=== PATIENT | female | born 1955 | race Caucasian/White ===

== ENCOUNTER 2023-10-16 00:43 | Outpatient (CLI) | payer MEDICARE | END 2023-10-16 00:44 | disposition critical access hospital (66) | LOC: EMS 00:43 | DX: R11.2 Nausea with vomiting, unspecified (principal); R53.1 Weakness; Z93.2 Ileostomy status | CPT/HCPCS: A0425; A0429 ==

== ENCOUNTER 2023-10-16 01:24 | Observation (INO) | payer MEDICAID, MEDICARE ==
[2023-10-16] MEDS ORDERED: ONDANSETRON 4 MG/2 ML VIAL IVP STA (01:28)
[2023-10-16] MEDS ORDERED: SODIUM CHLORIDE 0.9% 1,000 ML IV STA (01:28)
[2023-10-16] MEDS ORDERED: FAMOTIDINE 20 MG/2 ML VIAL IVP STA (01:31)
--- NOTE | 2023-10-16 01:31 | ED Physician Documentation ---
History of Present Illness - Stated complaint Stated Complaint: N/V, MALAISE - History obtained from History obtained from: Patient - Additonal information Additional information: 68yF with PSH colostomy p/w nbnb n/v since 9pm tonight. also with epigastric discomfort. patient states she was having trouble with ostomy on friday but has had good output the past couple days. unable to give further history due to retching. PD PAST MEDICAL HISTORY - Allergies Allergies/Adverse Reactions: Allergies Allergy/AdvReac Type Severity Reaction Status Date / Time No Known Drug Allergies Allergy Verified 10/16/23 01:28 PD ED PE NORMAL - Vitals Vital signs reviewed: Yes - General General: Alert and oriented X 3, No acute distress, Other (retching, actively vomiting) - HEENT HEENT: Atraumatic, PERRL, EOMI - Neck Neck: Supple, no meningeal sign - Cardiac Cardiac: RRR - Respiratory Respiratory: No respiratory distress, Clear bilaterally - Abdomen Abdomen: Non tender, Non distended - Derm Derm: Normal color, Warm and dry - Extremities Extremities: No deformity Results - Vitals Vitals: Vital Signs - 24 hr 10/16/23 10/16/23 10/16/23 01:28 01:34 05:00 Temperature 35.4 C L Heart Rate 78 76 78 Respiratory 20 17 17 Rate Blood Pressure 165/80 H 154/97 H 161/80 H O2 Saturation 100 97 98 Oxygen O2 Source Room air - Labs Labs: Laboratory Tests 10/16/23 10/16/23 10/16/23 01:44 01:44 03:40 WBC 13.4 H RBC 5.31 Hgb 16.0 Hct 49.1 H MCV 92.5 MCH 30.1 MCHC 32.6 RDW 11.6 L Plt Count 241 MPV 10.0 Neut # (Auto) 11.7 H Lymph # (Auto) 1.2 L [place] # (Auto) 0.4 Eos # (Auto) 0.0 Baso # (Auto) 0.1 Absolute Nucleated RBC 0.00 Nucleated RBC % 0.0 Sodium 136 Potassium 4.2 Chloride 102 Carbon Dioxide 16 L Anion Gap 18.0 H BUN 19 Creatinine 0.7 Estimated GFR (MDRD) 83 L Glucose 174 H Lactic Acid 3.7 H* Calcium 10.7 H Total Bilirubin 1.4 H AST 19 ALT 13 Alkaline Phosphatase 99 Total Protein 8.3 Albumin 4.8 Globulin 3.5 Albumin/Globulin Ratio 1.4 Lipase 32 PD Medical Decision Making - ED course ED course: 68yF with psh colostomy, otherwise healthy p/w nbnb n/v this evening. ordered IV fluids and zofran/IV pepcid with improvement. cbc, abdominal panel, ct a/p ordered. Patient has leukocytosis, elevated lactic acid on labwork and CT a/p shows enteritis. she has had persistent n/v all night despite multiple meds. plan to admit med/surg for persisent nausea in setting of bowel enteritis. blood cultures sent, antibiotics ordered. d/w Dr. Ramachandran for admission. Departure - Departure Disposition: 66 [facility] DC/Xfer Clinical Impression: Enteritis, Nausea and vomiting Condition: Stable Forms: PCP List
[2023-10-16 01:49] LABS: BASOPHILS # (AUTO) 0.1 10^3/uL (0.0-0.1); BASOPHILS % (AUTO) 0.4 %; EOSINOPHILS % (AUTO) 0.1 %; HCT - HEMATOCRIT 49.1 % (37.0-47.0); LYMPHOCYTES # (AUTO) 1.2 10^3/uL (1.5-3.5); LYMPHOCYTES % (AUTO) 9.2 %; MEAN CORPUSCULAR HEMOGLOBIN 30.1 pg (27.0-31.0); MEAN CORPUSCULAR HGB CONC 32.6 g/dL (32.0-36.0); MEAN CORPUSCULAR VOLUME 92.5 fL (81.0-99.0); MONOCYTES # (AUTO) 0.4 10^3/uL (0.0-1.0); MONOCYTES % (AUTO) 2.8 %; NEUTROPHILS # (AUTO) 11.7 10^3/uL (1.5-6.6); NEUTROPHILS % (AUTO) 87.1 %; PLT - PLATELET COUNT 241 10^3/uL (130-450); RED BLOOD COUNT 5.31 10^6/uL (4.20-5.40); RED CELL DISTRIBUTION WIDTH 11.6 % (12.0-15.0); WHITE BLOOD COUNT 13.4 x10^3/uL (4.8-10.8)
[2023-10-16 02:02] LABS: ALBUMIN 4.8 g/dL (3.2-5.5)
[2023-10-16 02:14] LABS: ALBUMIN/GLOBULIN RATIO 1.4 (1.0-2.2); BILIRUBIN,TOTAL 1.4 mg/dL (0.2-1.0); CALCIUM 10.7 mg/dL (8.5-10.3); POTASSIUM 4.2 mmol/L (3.5-4.5); TOTAL PROTEIN 8.3 g/dL (6.4-8.9)
[2023-10-16 02:31] LABS: CREATININE 0.7 mg/dL (0.6-1.3)
[2023-10-16] MEDS ORDERED: DROPERIDOL 5 MG/2 ML VIAL IVP STA (02:31)
[2023-10-16] MEDS ORDERED: iohexoL-300 100 ML VIAL IVP ONE (03:22)
[2023-10-16] MEDS ORDERED: METOCLOPRAMIDE 10 MG/2 ML VIAL IVP STA (05:47)
[2023-10-16] MEDS ORDERED: PIPERACILLIN/TAZOBACTAM 3.375 GM in SODIUM CHLORIDE 0.9% MINIBAG 100 ML IV STA (06:08)
[2023-10-16] MEDS ORDERED: SODIUM CHLORIDE FLUSH 0.9% 10 ML SYRINGE IVP PRN (06:15)
[2023-10-16] MEDS ORDERED: ONDANSETRON 4 MG/2 ML VIAL IVP PRN (06:35)
[2023-10-16] MEDS ORDERED: PROCHLORPERAZINE 10 MG/2 ML VIAL IVP PRN (06:40)
[2023-10-16 06:54] LABS: BILIRUBIN,URINE NEGATIVE (NEGATIVE); GLUCOSE, URINE (UA) NEGATIVE (NEGATIVE); KETONES,URINE (UA) TRACE mg/dL (NEGATIVE); LEUKOCYTE ESTERASE, URINE NEGATIVE (NEGATIVE); NITRITE,URINE NEGATIVE (NEGATIVE); OCCULT BLOOD,URINE NEGATIVE (NEGATIVE); PROTEIN,URINE NEGATIVE (NEGATIVE); UROBILINOGEN,URINE 0.2 (NORMAL) E.U./dL (NORMAL)
[2023-10-16 06:59] LABS: CLARITY,URINE CLEAR (CLEAR)
[2023-10-16] MEDS ORDERED: LACTATED RINGERS 1,000 ML IV SCH (07:00)
--- NOTE | 2023-10-16 07:12 | HISTORY & PHYSICAL EXAMINATION ---
Chief Complaint - Chief Complaint Chief Complaint: intractable nausea and vomiting History of Present Illness - History of Present Illness HPI Comment/Other: This is a 68 yo female with remote history of rectal ca,s/p surgery with colostomy bag in place about 12 years ago presented to the ER today with chief complaint of intractable nausea and vomiting.She felt she ate heavy meals and was concern that she might have had a bowel blockage.She had some chills but denied any fever,no chest pain no dizziness or light headedness. Persistent of symptoms prompted her to seek medical attention.She could not hold anything.Even while i was talking to her via zoom she continue to experience vomiting. In the ED imaging did not show obstruction rather it did reveal enteritis.She received IV fluid boluses and anti emetic zofran,reglan dronabinol and the Ed attending called us to evaluate and admit for further management and diagnostic workup. I evaluated the pt via zoom technology with the nurse at bedside. PMhx Rectal ca no other medical problems and chronically not on any medications Allergies None Social no smoking no alcohol,no illicit drugs Family No known family hx of HTN,DM,cancer total of ten systems reviewed negative other than those mentioned above Physical Exam General appearance uncomfortable with persistent interruption vomiting. HEENT NC/AT,anicteric sclera. CVS regular rate and rhythm no murmurs LUNGS clear, no wheezing no crackles,no use of accessory muscles GI soft colostomy,diminished,no masses palpated. EXT no edema, no ulcers,orcyanosis NEuro AAOX4 Labs reviewed Assessment. This is a 68yo female with above mentioned medical problems presenting with intractable nausea and non billous non bloody vomiting. Intractable Nausea/vomiting Hx of Rectal ca s/p surgery colostomy Dehydration Plan Pt will be admitted into observation under hospitalist team IV fluids hydration LR 125ml/hr Zofran 4mg iv q6hs as needed for nausea and vomiting Alternate with compazine 10mg iv q6hrs prn morphine 2mg as needed for pain 4-6 pepcid 10mg iv bid Electrolyte replacement protocol liquid diet as tolerated and advance DVT PX Lovenox 4omg Subq daily Plan DW pt and nurse at bedside answered all questions appropriately. Day team will assume care of pt History - Past Medical History MRSA Hx?: No Meds/Allgy - Allergies Allergies/Adverse Reactions: Allergies Allergy/AdvReac Type Severity Reaction Status Date / Time No Known Drug Allergies Allergy Verified 10/16/23 01:28 Exam - Vital Signs Vital Signs: Vital Signs x48h Temp Pulse Resp BP Pulse Ox 10/16/23 05:00 78 17 161/80 H 98 10/16/23 01:34 76 17 154/97 H 97 10/16/23 01:28 35.4 C L 78 20 165/80 H 100 Conclusion/Plan - Lab Results Fish Bones: 10/16/23 01:44 10/16/23 01:44
[2023-10-16] MEDS ORDERED: ENOXAPARIN 40 MG/0.4 ML SYRINGE SUBQ STA (07:19)
[2023-10-16] MEDS ORDERED: MORPHINE 2 MG/ML CARPUJECT IVP PRN (07:25)
[2023-10-16] MEDS ORDERED: FAMOTIDINE 20 MG/2 ML VIAL IVP SCH (08:00)
[2023-10-16] MEDS: metroNIDAZOLE 500 MG/100 ML 500 MG/100 ML BAG IV SCH ×3 (08:43→23:07)
[2023-10-16] MEDS: LACTATED RINGERS 1,000 ML IV SCH ×2 (08:43→18:35)
--- NOTE | 2023-10-16 09:10 | CT Report ---
PROCEDURE: ABDOMEN/PELVIS W INDICATIONS: Abdominal pain, acute, nonlocalized CONTRAST: 100mL Omni 300 TECHNIQUE: After the administration of intravenous contrast, 5 mm thick sections acquired from the diaphragms to the symphysis. 5 mm thick coronal and sagittal reformats were acquired. For radiation dose reducti on, the following was used: automated exposure control, adjustment of mA and/or kV according to pili ent size. COMPARISON: None FINDINGS: Image quality: Excellent. Lung bases and heart: Minimal dependent atelectasis.. Liver: Surgical clips along the left margin of the liver likely reflect partial left hepatectomy. Rig ht hepatic 10 mm hypodensity (2/26). Additional 9 mm fluid attenuating lesion at the hepatic dome (2/ 14), probable cyst. Gallbladder and biliary tree: Spleen: No splenomegaly. Pancreas: No pancreatic ductal dilation. Adrenals: No adrenal nodule. Kidneys and ureters: No hydronephrosis. No renal cystic lesion which requires follow up. No solid mas s. Bowel and peritoneum: Ostomy in the right lower and left lower quadrant. There is increased stool wit h the bowel terminating in the right lower quadrant ostomy which may reflect bowel stasis. Fluid-fill ed loops of nondistended small bowel with mild bowel wall thickening. No definite transition point to suggest a site of mechanical bowel obstruction. The appendix is not visualized. No pathologic free f luid. No pneumoperitoneum. Lymph nodes: No central or retroperitoneal adenopathy. Vessels: No infrarenal aortic aneurysm. PELVIS Reproductive organs: Unremarkable. Bladder: No abnormal wall thickening, accounting for underdistension. Pelvic lymph nodes: No pelvic adenopathy by size criteria. Bones: No acute or suspicious osseous abnormality. Sclerotic lesion in the left iliac bone, probable benign bone island. Other: No significant ventral or inguinal hernia. IMPRESSION: Status post bilateral lower quadrant ostomies. Increased stool burden may reflect bowel stasis. Fluid -filled loops of nondistended small bowel with mild bowel wall thickening may reflect enteritis. Status post left hepatectomy. 10 mm right hepatic lobe hypodensity is indeterminant. Recommend compar felisa to priors if available. MRI abdomen or multiphase liver protocol CT can be performed for further evaluation. These findings are concordant with [facility] preliminary results. Reviewed by: Abby Miller MD on 10/16/2023 9:09 AM PST Approved by: Abby Miller MD on 10/16/2023 9:09 AM PST Station ID: [id number]
[2023-10-16] MEDS: SODIUM CHLORIDE FLUSH 0.9% 10 ML SYRINGE IVP SCH ×2 (11:06→18:35)
[2023-10-16] MEDS: FAMOTIDINE 20 MG/2 ML VIAL IVP SCH (20:19)
[2023-10-17] MEDS: SODIUM CHLORIDE FLUSH 0.9% 10 ML SYRINGE IVP SCH ×2 (01:45→08:45)
[2023-10-17] MEDS: LACTATED RINGERS 1,000 ML IV SCH (04:40)
[2023-10-17 06:39] LABS: BASOPHILS # (AUTO) 0.1 10^3/uL (0.0-0.1); BASOPHILS % (AUTO) 0.6 %; EOSINOPHILS # (AUTO) 0.1 10^3/uL (0.0-0.7); EOSINOPHILS % (AUTO) 0.7 %; HCT - HEMATOCRIT 35.2 % (37.0-47.0); HGB - HEMOGLOBIN 11.4 g/dL (12.0-16.0); LYMPHOCYTES # (AUTO) 2.5 10^3/uL (1.5-3.5); LYMPHOCYTES % (AUTO) 23.4 %; MEAN CORPUSCULAR HEMOGLOBIN 29.2 pg (27.0-31.0); MEAN CORPUSCULAR HGB CONC 32.4 g/dL (32.0-36.0); MEAN PLATELET VOLUME 9.7 fL (7.9-10.8); MONOCYTES # (AUTO) 1.1 10^3/uL (0.0-1.0); MONOCYTES % (AUTO) 10.3 %; NEUTROPHILS # (AUTO) 7.1 10^3/uL (1.5-6.6); NEUTROPHILS % (AUTO) 64.8 %; PLT - PLATELET COUNT 224 10^3/uL (130-450); RED BLOOD COUNT 3.91 10^6/uL (4.20-5.40); RED CELL DISTRIBUTION WIDTH 11.5 % (12.0-15.0); WHITE BLOOD COUNT 10.9 x10^3/uL (4.8-10.8)
[2023-10-17 06:48] LABS: CALCIUM 8.9 mg/dL (8.5-10.3); CREATININE 0.5 mg/dL (0.6-1.3); MAGNESIUM 1.8 mg/dL (1.7-2.3); PHOSPHORUS 2.6 mg/dL (2.5-5.0); POTASSIUM 3.3 mmol/L (3.5-4.5)
[2023-10-17] MEDS: metroNIDAZOLE 500 MG/100 ML 500 MG/100 ML BAG IV SCH ×2 (07:17→15:05)
[2023-10-17] MEDS: FAMOTIDINE 20 MG/2 ML VIAL IVP SCH (08:45)
[2023-10-17] MEDS: POTASSIUM CHLOR 10 MEQ/100 ML 10 MEQ/100 ML BAG IV SCH ×2 (11:10→12:33)
--- NOTE | 2023-10-17 11:18 | PHARMACY PROGRESS NOTE ---
- Best Possible Medication History Admit Date and Time: 10/16/23 0633 Processed by: Pharmacy Medication History completed: Yes Patient Interview: Completed As the person ultimately responsible for medication therapy, providers are able to order a medication from an existing home medication list in [facility] via the "Reconcile Routine" prior to Confirmation of that medication by retail support specialist. Such practice is discouraged except when the physician, in their clinical jasmina gment, deems that a medical need exists for a medication without regard to previous use.
--- NOTE | 2023-10-17 14:00 | Discharge Plan ---
Discharge Plan Problem Reviewed?: Yes Disposition: 01 Home, Self Care Condition: Stable Diet: Regular (Eat an easily digestible diet that is low in fiber, and not fatty or spicy, for the next 4 to 5 days, and stay well hydrated.) Activity Restrictions: Activity as Tolerated Shower Restrictions: No Driving Restrictions: No Health Concerns: You were in the hospital to give you IV fluids, bowel rest with an easily digestible diet and a short course of antibiotics. You are enteritis symptoms have resolved and you are being discharged home today. Please resume all your usual pre-hospital medications and management. Plan of Treatment: As above. You should see your Primary Care Provider for a hospital follow-up visit. Care Goals: Improvement in symptoms and stabilization are the goals. Assessment: The patient understands and is agreeable with the plan. Additional Instructions or Follow Up instructions: If you have new or worsening symptoms, call your Primary Care Provider or Reference Services Head, for advice, or come to the ER. No Smoking: If you smoke, Please STOP! Call for help.
--- NOTE | 2023-10-17 14:02 | DISCHARGE SUMMARY ---
Discharge Summary Admit Date: 10/16/23 Discharge Date: 10/17/23 Discharging Provider: Dr Ani Kuhn Primary Care Provider: Dr Martha Sanchez Condition at Discharge: Stable Discharge Disposition: 01 Home, Self Care - HPI History of Present Illness: From Telemedicine H&P: This is a 68 yo female with remote history of rectal ca,s/p surgery with colostomy bag in place about 12 years ago presented to the ER today with chief complaint of intractable nausea and vomiting.She felt she ate heavy meals and was concern that she might have had a bowel blockage.She had some chills but denied any fever,no chest pain no dizziness or light headedness. Persistent of symptoms prompted her to seek medical attention.She could not hold anything.Even while i was talking to her via zoom she continue to experience vomiting. In the ED imaging did not show obstruction rather it did reveal enteritis. She received IV fluid boluses and anti emetic zofran, reglan dronabinol and the Ed attending called us to evaluate and admit for further management and diagnostic workup. I evaluated the pt via zoom technology with the nurse at bedside. - HOSPITAL COURSE Hospital Course: Intractable Nausea/vomiting She was put on clear ;iquids and got iv fluids and iv antiemetics. Her sx improved quickly. She was tried on more solid food, tolerate this and was able to be discharged the following day. Hx of Rectal ca As per Hx s/p surgery colostomy As per Hx Dehydration She was no longer clinically dehydrated after receiving iv fluids for a day. - ALLERGIES Allergies/Adverse Reactions: Allergies Allergy/AdvReac Type Severity Reaction Status Date / Time No Known Drug Allergies Allergy Verified 10/16/23 01:28 - MEDICATIONS Home Medications: Ambulatory Orders Medication Instructions Recorded Confirmed Calcium Carbonate [Calcium] 600 mg PO DAILY 10/17/23 10/17/23 Cholecalciferol (Vitamin D3) 125 mcg PO DAILY 10/17/23 10/17/23 [Vitamin D3] Cyanocobalamin (Vitamin B-12) 1,000 mcg PO DAILY 10/17/23 10/17/23 [Vitamin B-12] - PHYSICAL EXAM AT DISCHARGE General Appearance: positive: No acute distress, Alert Eyes Bilateral: positive: Normal inspection, EOMI ENT: positive: ENT inspection nml, No signs of dehydration Neck: positive: Nml inspection, No JVD Respiratory: positive: No respiratory distress Cardiovascular: positive: Regular rate & rhythm Abdomen: positive: Non-tender, No distention Skin: positive: Warm, Dry Extremities: positive: Non-tender, No pedal edema Neurologic/Psychiatric: positive: Oriented x3, CN's nml (2-12), Motor nml - LABS Result Diagrams: 10/17/23 05:57 10/17/23 05:57 - DIAGNOSTIC IMAGING Diagnostic Imaging Results: Final report reviewed - FOLLOW UP Follow Up: See PCP when scheduled for a routine office visit - TIME SPENT Time Spent in Discharge (Minutes): 25
[2023-10-17 18:25] VITALS: BP 110/76; O2SAT 99
== END 2023-10-17 15:00 | disposition home or self-care (01) ==
LOC: ED 01:24 → MS2 06:33
PROVIDERS: ADMIT Internal Medicine; ATTEND Internal Medicine
DX: K52.9 Noninfective gastroenteritis and colitis, unspecified (principal); E86.0 Dehydration; Z85.048 Personal history of other malignant neoplasm of rectum, rectosigmoid junction, and anus; Z93.3 Colostomy status
CPT/HCPCS: 36415; 74177; 80048; 80053; 81003; 83605; 83690; 83735; 84100; 85025; 87040; 96361; 96365; 96366; 96367; 96375; 96376; 99284; 99285; G0378; J2765; J7120; Q9967; 81001; 87086